=== PATIENT | male | born 1995 | race Caucasian/White ===

== ENCOUNTER 2019-05-05 05:35 | Emergency (ER) | payer OTHER ==
[~2019-05-05] VITALS: Ht 180.3 cm; Wt 74.8 kg
--- NOTE | 2019-05-05 06:02 | NUR ---
PT BIB [facility] TO ER WITH A SWOLLEN AND ITCHY RED BUMP ON RIGHT BUTTOCKS. PT STATES THAT IT OCCURRED 3x DAYS AGO AND IT GOT WORSE. SCAB FORMED IN THE CENTER OF THE POSSIBLE SPIDER BITE. HX OF DRUG USEHEROIN INJECTIONS AND CRYSTAL METH USE. AAOX4. NO SOB. BREATHING EVENLY AND UNLABORED. CONNECTED TO MONITOR. Addendum: 05/05/19 at 0609 by OMER PATIENT STATES THAT HIS RIGHT BUTTOCKS IS SORE. DENIES PAIN.
[2019-05-05] MEDS ORDERED: LIDOCAINE 1%-EPI 1:100,000 20 ML VIAL ONE (06:14)
--- NOTE | 2019-05-05 06:32 | NUR ---
at bedside for Incision and Drainage.
[2019-05-05] MEDS ORDERED: HYDROCODONE/APAP 5/325MG 1 EACH TABLET ONE (06:57)
[2019-05-05] MEDS ORDERED: CEPHALEXIN MONOHYDRATE 500 MG CAPSULE PO ONE ×2 (06:58→07:00)
[2019-05-05] MEDS ORDERED: SULFAMETH/TRIMETH 800/160 MG 1 UDTAB TABLET ONE (06:58)
[2019-05-05] MEDS ORDERED: SULFAMETH/TRIMETH 800/160 MG 1 UDTAB TABLET PO ONE (07:00)
[2019-05-05] MEDS ORDERED: HYDROCODONE/APAP 5/325MG 1 EACH TABLET PO ONE (07:00)
--- NOTE | 2019-05-05 07:23 | NUR ---
report given to Morteza ANNE for [facility]URDO.
[2019-05-05 07:29] VITALS: BP 129/81
--- NOTE | 2019-05-05 07:30 | NUR ---
Patient discharged to home in stable condition. Written and verbal after care instructions given. Patient verbalizes understanding of instruction.
== END 2019-05-05 07:29 | disposition home or self-care (01) ==
LOC: ER 05:41
DX: L02.31 Cutaneous abscess of buttock (principal); L03.317 Cellulitis of buttock; F10.10 Alcohol abuse, uncomplicated; F17.200 Nicotine dependence, unspecified, uncomplicated; Y90.9 Presence of alcohol in blood, level not specified; Z88.0 Allergy status to penicillin
CPT/HCPCS: 10060; 99284; A6403; A6407; J3490

== ENCOUNTER 2021-01-16 22:43 | Emergency (ER) | payer OTHER ==
[~2021-01-16] VITALS: Ht 180.3 cm; Wt 79.4 kg
--- NOTE | 2021-01-16 23:10 | NUR ---
PATIENT BIBRA 76 C/O OVERDOSE ON FENTANYL. PATIENT FOUND APNIC ON THE SCENE. NARCAN 2MG IV GIVEN BY EMS. PATIENT AWAKE AND RESPONSIVE ON TRIAGE. PATIENT A/O X 4, RR EVEN AND UNLABORED, NO SIGNS OF SOB NOTED. PATIENT CONNECTED TO VETERINARY TECHNICIAN AND POX.
[2021-01-16 23:28] LABS: BASOPHILS # (AUTO) 0.1 K/uL (0.0-0.2); BASOPHILS % (AUTO) 0.7 % (0.0-2.0); EOSINOPHILS % (AUTO) 2.2 % (0.0-6.0); HEMATOCRIT 43 % (39-51); HEMOGLOBIN 14.3 g/dL (13.5-17.5); LYMPHOCYTES % (AUTO) 21.4 % (20.0-44.0); MEAN CORPUSCULAR HGB CONC 34 g/dl (31.0-36.0); MEAN CORPUSCULAR VOLUME 92 fL (80-96); MONOCYTES # (AUTO) 1.1 K/uL (0.1-1.30); MONOCYTES % (AUTO) 7.6 % (2.0-12.0); NEUTROPHILS # (AUTO) 9.6 K/uL (1.8-8.9); NEUTROPHILS % (AUTO) 68.1 % (43.0-81.0); PLATELET COUNT (AUTO) 396 K/uL (150-450); RED BLOOD CELL COUNT(AUTO) 4.63 MIL/uL (4.5-6.0); WHITE BLOOD COUNT (AUTO) 14.2 K/uL (4.3-11.0)
[2021-01-16 23:41] LABS: ALANINE AMINOTRANSFERASE 258 U/L (12-78); ALBUMIN 4.1 g/dL (3.4-5.0); ALKALINE PHOSPHATASE 130 U/L (46-116); ASPARTATE AMINOTRANSFERASE 74 U/L (15-37); BILIRUBIN,DIRECT 0.1 mg/dL (0.0-0.2); BILIRUBIN,TOTAL 0.4 mg/dL (0.2-1.0); CALCIUM, SERUM 8.6 mg/dL (8.5-10.1); CARBON DIOXIDE 25 mmol/L (21-32); CHLORIDE 103 mmol/L (98-107); CREATININE 1.1 mg/dL (0.6-1.3); GLUCOSE 198 mg/dL (74-106); POTASSIUM 3.6 mmol/L (3.5-5.1); SODIUM SERUM 141 mmol/L (136-145); TOTAL PROTEIN, SERUM 7.7 g/dL (6.4-8.2); UREA NITROGEN, BLOOD 10 mg/dL (7-18)
[2021-01-17 00:05] LABS: ACETAMINOPHEN 0 ug/ml (10-30)
[2021-01-17 00:06] LABS: ALCOHOL, BLOOD < 3 mg/dL (0-0)
--- NOTE | 2021-01-17 01:40 | NUR ---
Patient does not wish to proceed with medical care recommended by Dr. Pizano. Patient given information related to possible complications, up to and including , which could occur as a result of leaving the hospital at this time. Patient verbalizes understanding of risks involved due to leaving against medical advice. Patient has signed AMA form.
[2021-01-17 02:13] VITALS: BP 132/76
== END 2021-01-17 01:50 | disposition home or self-care (01) ==
LOC: ER 22:44
DX: T40.691A Poisoning by other narcotics, accidental (unintentional), initial encounter (principal); R94.31 Abnormal electrocardiogram [ECG] [EKG]; R74.01 Elevation of levels of liver transaminase levels; R00.0 Tachycardia, unspecified; Z88.0 Allergy status to penicillin; Z59.0 Homelessness; Y92.89 Other specified places as the place of occurrence of the external cause
CPT/HCPCS: 36415; 71045-TC; 80048-TC; 80076-TC; 83735-TC; 84484-TC; 85025-TC; G0480